=== PATIENT | female | born 1970 | race Caucasian/White ===

== ENCOUNTER 2017-03-01 12:26 | Emergency (ER) | payer OTHER ==
[~2017-03-01] VITALS: Ht 162.5 cm; Wt 77.1 kg
[~2017-03-01 12:26] MED LIST: AMOXICILLIN500 M2 PO; AMOXICILLIN500 MG PO; CLARITIN-D 12 H1 TAB PO; CLARITIN10 MG PO; DIFLUCAN150 MG PO; FLONASE ALLERG9.9 ML NS; MEDROL DOSEPAK4 MG PO; NAPROSYN500 MG PO; ZOFRAN4 MG PO; ZYRTEC10 MG PO
[2017-03-01 12:34] VITALS: BP 150/90
[2017-03-01] MEDS ORDERED: AMOXICILLIN500 M2 PO (12:39)
[2017-03-01] MEDS ORDERED: Motrin,Rufen800 MG PO (12:39)
[2017-03-01] MEDS ORDERED: TYLENOL WITH C1 EACH PO (12:40)
[2017-03-01] MEDS ORDERED: Peridex 473 ML473 ML PO (12:44)
[2017-03-01] MEDS ORDERED: CLINDAMYCIN150 MG PO (12:48)
== END 2017-03-01 13:32 | disposition home or self-care (01) ==
LOC: ED 12:26
DX: K08.89 Other specified disorders of teeth and supporting structures (principal); R03.0 Elevated blood-pressure reading, without diagnosis of hypertension; F17.200 Nicotine dependence, unspecified, uncomplicated; Z88.2 Allergy status to sulfonamides; Z79.899 Other long term (current) drug therapy

== ENCOUNTER 2018-08-30 19:13 | Emergency (ER) | payer BC ==
[~2018-08-30] VITALS: Ht 162.5 cm; Wt 79.4 kg
[~2018-08-30 19:13] MED LIST changes: +CLINDAMYCIN150 MG PO; +Motrin,Rufen800 MG PO; +Peridex 473 ML473 ML PO; +TYLENOL WITH C1 EACH PO
[2018-08-30 19:14] VITALS: BP 157/90
[2018-08-30 19:35] LABS: BILIRUBIN NEGATIVE (NEGATIVE); BLOOD 2+ (NEGATIVE); CLARITY SL CLOUDY (CLEAR); COLOR YELLOW (YELLOW); GLUCOSE NEGATIVE (NEGATIVE); KETONE TRACE (NEGATIVE); LEUKO ESTERASE 1+ (NEGATIVE); NITRITE NEGATIVE (NEGATIVE); UROBILINOGEN 0.2 E.U./dl (0.2-1.0)
[2018-08-30 20:08] LABS: BACTERIA 1+; EPITHELIAL CELLS TNTC; YEAST TRACE
[2018-08-30 20:13] LABS: RBC TNTC rbc/hpf (0-2)
[2018-08-30] MEDS ORDERED: CIPRO500 MG PO (20:19)
[2018-08-30] MEDS ORDERED: PYRIDIUM200 M1 PO (20:19)
== END 2018-08-30 20:59 | disposition home or self-care (01) ==
LOC: ED 19:13
PROVIDERS: Physician Assistant
DX: N39.0 Urinary tract infection, site not specified (principal); R51 Headache; Z88.2 Allergy status to sulfonamides; Z90.5 Acquired absence of kidney

== ENCOUNTER 2021-11-01 16:09 | Emergency (ER) | payer BC ==
[~2021-11-01] VITALS: Ht 162.5 cm; Wt 77.1 kg
[~2021-11-01 16:09] MED LIST changes: +CIPRO500 MG PO; +PYRIDIUM200 M1 PO
[2021-11-01 16:26] VITALS: BP 145/90
[2021-11-01] MEDS ORDERED: PREDNISONE20 M1 PO (16:49)
== END 2021-11-01 17:04 | disposition home or self-care (01) ==
LOC: ED 16:09
DX: L23.7 Allergic contact dermatitis due to plants, except food (principal)